=== PATIENT | male | born 1995 | race Two or more races ===

== ENCOUNTER → 2018-05-21 | Outpatient (CLI) | payer OTHER | LOC: M WUC 15:34 | DX: S16.1XXA Strain of muscle, fascia and tendon at neck level, initial encounter (principal); M54.5 Low back pain; M54.6 Pain in thoracic spine; X58.XXXA Exposure to other specified factors, initial encounter; Y92.89 Other specified places as the place of occurrence of the external cause; Y93.9 Activity, unspecified; Y99.9 Unspecified external cause status | CPT/HCPCS: 72052 ==

== ENCOUNTER 2018-10-19 14:47 | Outpatient (RCR) | payer OTHER | END 2018-10-22 | LOC: M PT 14:47 | DX: M54.6 Pain in thoracic spine (principal); M54.2 Cervicalgia ==

== ENCOUNTER 2018-10-28 15:45 | Outpatient (RCR) | payer OTHER | END 2018-11-22 | LOC: M PT 15:45 | PROVIDERS: ATTEND Nurse Practitioner Family | DX: Z47.89 Encounter for other orthopedic aftercare (principal); M54.2 Cervicalgia; M54.6 Pain in thoracic spine ==